=== PATIENT | female | born 1955 | race Caucasian/White ===

== ENCOUNTER → 2019-02-13 | Outpatient (CLI) | payer BC ==
--- NOTE | 2019-02-13 10:56 | Diagnostic Imaging Report ---
PATIENT HISTORY: TB screening. TECHNIQUE: Two views of the chest. COMPARISON: None. FINDINGS: The lung volumes are hyperexpanded, most likely representing COPD. No focal consolidation is seen. No large pleural effusion or pneumothorax is seen. The cardiomediastinal silhouette is normal in size and contour. Sternotomy wires are noted. No acute osseous abnormality is seen. IMPRESSION: 1. No radiographic evidence of tuberculosis. No focal consolidation or mass. Dictated by: Dictated on workstation # [id number]
== END ==
LOC: RAD FS 10:45
DX: Z11.1 Encounter for screening for respiratory tuberculosis (principal); M06.09 Rheumatoid arthritis without rheumatoid factor, multiple sites; M85.89 Other specified disorders of bone density and structure, multiple sites; Z79.899 Other long term (current) drug therapy
CPT/HCPCS: 71046